=== PATIENT | female | born 1940 | race American Indian/Alaskan Native ===

== ENCOUNTER 2019-07-23 01:05 | Emergency (ER) | payer MEDICARE ==
[~2019-07-23] VITALS: Ht 160 cm; Wt 69.0 kg
[2019-07-23] MEDS ORDERED: AMLODIPINE BESYL5 MG PO (01:24)
[2019-07-23] MEDS ORDERED: LEVOTHYROXINE88 MCG PO (01:24)
[2019-07-23] MEDS ORDERED: ASPIRIN81 MG PO (01:25)
[2019-07-23] MEDS ORDERED: LIPITOR10 MG PO (01:26)
--- NOTE | 2019-07-23 23:03 | EKG ---
[facility] [address] [facility] [place], [place] [address] Signed Normal sinus rhythm Normal ECG No previous ECGs available Confirmed by JUNG LITTLE DO ([id number]) on 07/23/2019 11:02:58 PM Electronically Signed By: JUNG LITTLE DO 07/23/19 2303 PATIENT NAME: ROSHNI AMADO Electrocardiogram DATE OF : 44 PHYSICIAN: JUNG LITTLE DO REPORT #: [id number] REPORT IS CONFIDENTIAL AND NOT TO BE RELEASED WITHOUT AUTHORIZATION
== END 2019-07-23 05:00 | disposition home or self-care (01) ==
LOC: ED 01:05
DX: R07.89 Other chest pain (principal); E78.00 Pure hypercholesterolemia, unspecified; E03.9 Hypothyroidism, unspecified; I10 Essential (primary) hypertension; Z87.891 Personal history of nicotine dependence; Z88.5 Allergy status to narcotic agent; Z79.899 Other long term (current) drug therapy
CPT/HCPCS: 71046; 80053; 84484; 85025; 85379; 85610; 85730; 93005; 93010; 96374; 99285-25; J1885